=== PATIENT | male | born 1955 | race Two or more races ===

== ENCOUNTER 2023-11-17 11:26 | Emergency (ER) | payer OTHER ==
[~2023-11-17] VITALS: Ht 165.1 cm; Wt 73.0 kg
[2023-11-17 11:40] VITALS: PULSE 72; RESP 19; O2SAT 98
[2023-11-17] MEDS ORDERED: LABETALOL HCL 5 MG/ML 4ML SYRINGE IV ONE ×4 (11:42→13:15)
[2023-11-17] MEDS: LABETALOL HCL 5 MG/ML 4ML SYRINGE IV ONE ×2 (11:45→12:36)
[2023-11-17] MEDS ORDERED: IOHEXOL 350 MG/ML 100ML IJ ONE (11:47)
[2023-11-17 12:12] LABS: Basophils # (auto) 0 10 ^3/uL (0-0.2); Basophils % (auto) 0.3 % (0.0-2.0); Eosinophils # (auto) 0 10 ^3/uL (0-0.8); Eosinophils % (auto) 0.3 % (0.0-7.0); Hemoglobin 13.4 g/dL (13.5-17.5); Lymphocytes # (auto) 1.3 10 ^3/uL (0.4-5.4); Lymphocytes % (auto) 9.7 % (10.0-50.0); Mean Corpuscular Hemoglobin 28.2 pg (28.0-32.0); Mean Corpuscular Hgb Conc. 32.8 g/dL (32.0-36.0); Mean Corpuscular Volume 86.1 fL (80.0-100.0); Monocytes # (auto) 0.5 10 ^3/uL (0-1.3); Monocytes % (auto) 3.9 % (0.0-12.0); Neutrophils # (auto) 11.1 10 ^3/uL (1.6-8.6); Neutrophils % (auto) 85.8 % (37.0-80.0); Nucleated Red Blood Cells % 0.2 %; Red Blood Cells 4.76 10^6/uL (4.5-5.90); Red Cell Distribution Width 13.8 % (11.8-14.3); White Blood Cell 12.9 10^3/uL (4.4-10.8)
[2023-11-17 12:27] LABS: Alanine Aminotransferase 18 U/L (7-40); Albumin 4.4 g/dL (3.2-4.8); Alkaline Phosphatase 88 U/L (46-116); Anion Gap 10 (5-15); Aspartate Aminotransferase 27 U/L (13-40); BUN/Creatinine Ratio 13.1 (10.0-20.0); Blood Urea Nitrogen 13 mg/dL (9-23); Carbon Dioxide 24 mmol/L (20-30); Chloride 100 mmol/L (98-107); Glucose 218 mg/dL (74-106); Magnesium 1.8 mg/dL (1.6-2.6); Potassium 4.5 mmol/L (3.5-5.1); Sodium 134 mmol/L (136-145)
[2023-11-17 12:28] LABS: Bilirubin, Total 0.5 mg/dL (0.2-1.0); Total Protein 7.2 g/dL (5.7-8.2)
[2023-11-17 12:35] LABS: INR 1.12 (0.9-1.15); Partial Thromboplastin Time 30.8 SEC (24.5-34.5); Prothrombin Time 11.7 sec (9.3-11.8)
[2023-11-17] MEDS ORDERED: TENECTEPLASE 50mg/10ml KIT IV ONE (13:15)
[2023-11-17] MEDS ORDERED: LORazepam 2MG/ML-1ML VIAL IV PRN (14:00)
[2023-11-17] MEDS ORDERED: ACETAMINOPHEN 650 MG RECT SUPP PR PRN (14:00)
[2023-11-17 14:57] LABS: Triglycerides 99 mg/dL (< 150)
[2023-11-17 14:58] LABS: LDL Cholesterol 125 mg/dL (< 100)
[2023-11-17 14:59] LABS: Cholesterol 173 mg/dL (< 200); HDL Cholesterol 41 mg/dL (40-59)
[2023-11-17 15:30] VITALS: BP 134/67; PULSE 63; RESP 20; TEMP 97.8; O2SAT 99
[2023-11-17] MEDS ORDERED: ATORVASTATIN 20 MG TAB PO SCH (22:00)
[2023-11-18] MEDS ORDERED: FAMOTIDINE (10MG/ML) 2ML VL IV SCH (10:00)
== END 2023-11-17 15:45 | disposition short-term general hospital (02) ==
LOC: ER 11:26
DX: I63.9 Cerebral infarction, unspecified (principal); I16.0 Hypertensive urgency
CPT/HCPCS: 36415; 70450; 70496; 71045; 80053; 80061; 83735; 83880; 84484; 85025; 85610; 85730; 93005; 96365; 96375; 96376; 99291; J3490; Q9967